=== PATIENT | female | born 1965 | race Caucasian/White ===

== ENCOUNTER → 2017-01-14 | Outpatient (CLI) | payer BC | END | disposition home or self-care (01) | LOC: CDC 13:25 | DX: Z01.810 Encounter for preprocedural cardiovascular examination (principal) | CPT/HCPCS: 93000 ==

== ENCOUNTER 2017-01-28 07:19 | Day surgery (SDC) | payer BC ==
[~2017-01-28] VITALS: Ht 167.6 cm; Wt 54.8 kg
[~2017-01-28 07:19] MED LIST: IRON325 M1 PO
[2017-01-28 08:08] VITALS: BP 111/58
[2017-01-28 11:40] VITALS: BP 118/67
[2017-01-28 12:10] VITALS: BP 115/53
== END 2017-01-28 12:22 | disposition home or self-care (01) ==
LOC: SDC 07:19
DX: N84.0 Polyp of corpus uteri (principal); N92.6 Irregular menstruation, unspecified; D25.1 Intramural leiomyoma of uterus; Z87.891 Personal history of nicotine dependence
CPT/HCPCS: 88305; J1100; J1885; J2250; J2405; J3010